=== PATIENT | male | born 1995 | race Caucasian/White ===

== ENCOUNTER 2017-03-03 21:46 | Emergency (ER) | payer SELFPAY ==
[~2017-03-03] VITALS: Ht 185.4 cm; Wt 101.2 kg
[2017-03-03 22:00] VITALS: BP 119/80
[2017-03-03] MEDS ORDERED: diphenhydrAMINE 50 MG/ML VIAL ONE (22:21)
[2017-03-03] MEDS ORDERED: KETOROLAC 30 MG/ML VIAL. ONE (22:22)
[2017-03-03] MEDS ORDERED: METOCLOPRAMIDE HCL 10 MG/2 ML VIAL. ONE (22:22)
[2017-03-03] MEDS ORDERED: diphenhydrAMINE 50 MG/ML VIAL IV ONE (22:30)
[2017-03-03] MEDS ORDERED: KETOROLAC 30 MG/ML VIAL. IV ONE (22:30)
[2017-03-03] MEDS ORDERED: METOCLOPRAMIDE HCL 10 MG/2 ML VIAL. IV ONE (22:30)
[2017-03-03] MEDS ORDERED: IV NORMAL SALINE 1,000ML 1,000 ML IV ONE (22:30)
[2017-03-03] MEDS ORDERED: ONDA4TAB10 SL (22:52)
--- NOTE | 2017-03-03 22:52 | PHYS DOC ---
Past History Past Medical History: No Pertinent History Past Surgical History: No Surgical History Alcohol Use: None Drug Use: None Adult General Chief Complaint Chief Complaint: HEADACHE HPI HPI Patient is a 21-year-old gentleman who presents here today complaining of nausea , headache, not feeling well, generalized fatigue,. Patient reports he is to call in sick. Patient reports she has 2 jobs and works about 20 hours a day and thinks that he uses to stress. Patient called in sick today from his job at [employer]. He was not feeling well and felt like he needed to be evaluated in the ER. Patient denies any fevers shakes chills cough cold runny nose. Patient reports she's been eating and drinking well. Patient has any tobacco alcohol or drugs. Patient has any other past medical history. Review of systems: Constitutional: Denies fever or chills Eyes: Denies change in visual acuity, redness, or eye pain HENT: Denies nasal congestion or sore throat All other systems were reviewed and found to be within normal limits, except as documented in this note. Physical exam Constitutional: Well developed, well nourished, no acute distress, non-toxic appearance. HENT: Normocephalic, atraumatic, bilateral external ears normal, oropharynx moist, no oral exudates, nose normal. Eyes: PERRLA, EOMI, conjunctiva normal, no discharge. Neck: Normal range of motion, no tenderness, supple, no stridor. Cardiovascular:Heart rate regular rhythm, Lungs & Thorax: Bilateral breath sounds clear to auscultation Abdomen: Nondistended. Skin: Warm, dry, no erythema, no rash. Back: No tenderness, no CVA tenderness. Extremities: No tenderness, no cyanosis, no clubbing, ROM intact, no edema. Neurologic: Alert and oriented X 3, normal motor function, normal sensory function, no focal deficits noted. Psychologic: Affect normal, judgement normal, mood normal. ER physical exam is significant for a benign abdomen. Patient's abdomen was soft nontender no rebound or guarding. Patient's pupils are equally round and reactive to light. Promotions were intact. Funduscopic exam. No nuchal rigidity. Assessment and plan: 21-year-old gentleman who presents here today with headache and nausea. Patient's physical exam today is unremarkable. Labs have been ordered for the patient as well as IV fluids Benadryl and Toradol and Reglan to assist with symptoms. Patient is declining all this workup because his ride is here and she is about to leave. Patient is requesting a note for work so that he go home and get some rest. Patient understands risks of missing a life-threatening process without further evaluation the ER. Patient reports that he needs to get his ride home. You'll need to walk home. Patient was offered a cab voucher which he declined. Current Medications Current Medications Current Medications Medications (Trade) Dose Ordered Sig/More[place] Start Time Stop Time Status Last Admin Dose Admin Diphenhydramine HCl (Benadryl) 25 mg 1X ONCE 03/03/17 22:30 03/03/17 22:32 DC 03/03/17 22:29 25 MG Ketorolac Tromethamine (Toradol) 30 mg 1X ONCE 03/03/17 22:30 03/03/17 22:32 DC 03/03/17 22:30 30 MG Metoclopramide HCl (Reglan Vial) 10 mg 1X ONCE 03/03/17 22:30 03/03/17 22:32 DC 03/03/17 22:30 10 MG Sodium Chloride 1,000 ml @ 1,000 mls/hr 1X ONCE 03/03/17 22:30 03/03/17 23:29 03/03/17 22:29 1,000 MLS/HR Allergies Allergies Allergies Coded Allergies Type Severity Reaction Last Updated Verified No Known Drug Allergies 03/03/17 No Current Patient Data Vital Signs Vital Signs Date Time Temp Pulse Resp B/P (MAP) Pulse Ox O2 Delivery O2 Flow Rate FiO2 03/03/17 22:00 98.2 72 20 99 Room Air EKG EKG [] Radiology/Procedures Radiology/Procedures [] Course & Med Decision Making Course & Med Decision Making Pertinent Labs and Imaging studies reviewed. (See chart for details) [] Dragon Disclaimer Dragon Disclaimer This electronic medical record was generated, in whole or in part, using a voice recognition dictation system. Departure Departure: Impression: Primary Impression: Headache Additional Impression: Nausea Disposition: HOME, SELF-CARE Condition: IMPROVED Referrals: PCP,NO (PCP) Patient Instructions: Fatigue, General Headache Without Cause Scripts Ondansetron (ZOFRAN ODT) 4 Mg Tab.rapdis 1 TAB SL Q8HRS for NAUSEA, #15 TAB Prov: TINA GERONIMO MD 03/03/17 Problem Qualifiers TINA GERONIMO MD Mar 03, 2017 22:52
== END 2017-03-03 23:00 | disposition home or self-care (01) ==
LOC: ER 21:46
DX: R51 Headache (principal); R11.0 Nausea; R53.83 Other fatigue
CPT/HCPCS: 96374; 96375; 99284; J1200; J1885; J2765; J7030

== ENCOUNTER 2020-04-27 22:02 | Emergency (ER) | payer SELFPAY ==
[~2020-04-27] VITALS: Ht 188 cm; Wt 108.4 kg
[~2020-04-27 22:02] MED LIST: ONDA4TAB10 SL
--- NOTE | 2020-04-27 22:09 | PHYS DOC ---
Past History Past Medical History: No Pertinent History Past Surgical History: No Surgical History Alcohol Use: None Drug Use: None General Adult EDM: Chief Complaint: HEMORRHOIDS HPI: HPI: ".. My aubrey and I were working on this car.. lifting the car body off the frame and motor.. and I was trying to push it back.. and slipped on some transmission fluid.. and too much weight.. I got severe abd. pain and rectal pain.. feels like I got a hernia and or hemorrhoid.. the area above my sack hurts.. and below my belly button.. ".. " I took some tylenol 3.. I had left over from car accide nt.. but I am still hurting..." Patient is a 25 year old male who presents with above hx and complaints of nausea, hernia and hemorrhoids. Patient symptoms started after lifting a car body. Patient denies previous abdomen or hemorrhoids. Does have a hemorrhoid which appears to be fresh approximately the size of a quarter. Does have tenderness on lower pelvis. No obvious hernia into his scrotal sac. Circumcised male. Patient did eat approximately 2 hours ago. Patient is normally healthy. No history of travel. No specific ill contacts. Review of Systems: Review of Systems: Constitutional: Denies fever or chills Eyes: Denies change in visual acuity HENT: Denies nasal congestion or sore throat Respiratory: Denies cough or shortness of breath Cardiovascular: Denies chest pain or edema GI: Complains of generalized abdominal pain, nausea and rectal pain. Denies, vomiting, bloody stools or diarrhea : Denies dysuria Musculoskeletal: Denies back pain or joint pain Integument: Denies rash Neurologic: Denies headache, focal weakness or sensory changes Endocrine: Denies polyuria or polydipsia Lymphatic: Denies swollen glands Psychiatric: Denies depression or anxiety Family History: Family History: Noncontributory to presentation Current Medications: Current Meds: See nursing for home meds Allergies: Allergies: Allergies Coded Allergies Type Severity Reaction Last Updated Verified No Known Drug Allergies 03/03/17 No Physical Exam: PE: Constitutional: Well developed, well nourished,in acute distress, non-toxic appearance. [] HENT: Normocephalic, atraumatic, bilateral external ears normal, oropharynx moist, no oral exudates, nose normal. [] Eyes: PERRLA, EOMI, conjunctiva normal, no discharge. [] Neck: Normal range of motion, no tenderness, supple, no stridor. [] Cardiovascular: Bradycardia heart rate regular rhythm, no murmur [] Lungs & Thorax: Bilateral breath sounds equal apex with few scattered wheezes on auscultation [] Abdomen: Bowel sounds decreased, distended, soft, generalized lower abdomen tenderness, tenderness to area just above his scrotal sac, no masses, no pulsatile masses. Rectal has a new hemorrhoid approximately 2 cm in diameter. Circumcised male. Testicles descended. Skin: Warm, dry, no erythema, no rash. [] Back: No tenderness, no CVA tenderness. [] Extremities: No tenderness, no cyanosis, no clubbing, ROM intact, no edema. Does have bilateral psoas tenderness Neurologic: Alert and oriented X 3, normal motor function, normal sensory function, no focal deficits noted. [] Psychologic: Affect anxious, judgement normal, mood normal. [] EKG: EKG: My interpretation EKG shows a sinus rhythm at 63 bpm. No acute morphology [] Radiology/Procedures: Radiology/Procedures: [[place] [address] IMAGING REPORT Signed PATIENT: CARITO LOO ACCOUNT: [id number] : 1995 LOCATION: ER AGE: 25 SEX: M EXAM STATUS: REG ER ORD. PHYSICIAN: ISHMAEL THORPE MD REASON: pain, injury lifting car body PROCEDURE: ACUTE ABDOMEN SERIES EXAM: Frontal view of the chest, AP views of the abdomen in upright and supine positions. CLINICAL INDICATION: Reason: pain, injury lifting car body / Spl. Instructions: / History: COMPARISON: None. FINDINGS and IMPRESSION: The heart is not enlarged. Mediastinal and hilar contours are normal. No focal parenchymal airspace opacity. No pleural effusion or pneumothorax. No abnormal small or large bowel dilatation. Moderate to large volume colonic stool content. No abnormal soft tissue mass effect. No suspicious calcifications are seen. No free intraperitoneal gas. Electronically signed by: Tal Bruce MD (04/27/2020 11:19 PM) [facility] DI[facility] AND SIGNED BY: TAL BRUCE MD DATE: 04/27/20 7039 CC: ISHMAEL THORPE MD; PCP,NO ~MTH0 0 ][address] [address] IMAGING REPORT Signed PATIENT: CARITO LOO ACCOUNT: [id number] : 1995 LOCATION: ER AGE: 25 SEX: M EXAM STATUS: REG ER ORD. PHYSICIAN: ISHMAEL THORPE MD REASON: pain, radiates lower abdomen into testicle sack PROCEDURE: CT ABD PELV W/ORAL&IV CONTRAST EXAM: CT Abdomen and Pelvis with IV contrast CLINICAL HISTORY: pain, radiates lower abdomen into testicle sack COMPARISON: none TECHNIQUE: Helical CT of the abdomen and pelvis was performed following the administration of intravenous contrast. Axial, coronal and sagittal reformatted images were generated. PQRS compliance statement - One or more of the following individualized dose reduction techniques were utilized for this study: 1. Automated exposure control 2. Adjustment of the mA and/or kV according to patient size 3. Use of iterative reconstruction technique FINDINGS: Lower Chest: Linear opacities left lower lobe likely scarring/atelectasis. Abdomen and Pelvis: Liver, spleen, adrenal glands, pancreas and gallbladder is normal in appearance. No biliary ductal dilatation. Symmetric nephrograms. No focal renal lesion. No hydronephrosis. Appendix is normal. Moderate colonic stool content is seen. No small or large bowel dilatation. No bowel obstruction. No abdominal or pelvic ascites. No abdominal or pelvic lymphadenopathy. Aorta is normal in caliber. Bones: No aggressive osseous lesion is seen. IMPRESSION: 1. Moderate colonic stool content is seen. No bowel obstruction. 2. Appendix is normal. 3. No abdominal or pelvic lymphadenopathy. Electronically signed by: Tal Bruce MD (04/28/2020 12:31 AM) [facility] AND SIGNED BY: TAL BRUCE MD DATE: 04/28/20 0024 CC: ISHMAEL THORPE MD; PCP,NO ~MTH0 0 Heart Score: HEART Score for Chest Pain: HEART Score for Chest Pain Response (Comments) Value History Slighlty/Non-Suspicious 0 ECG Normal 0 Age < 45 0 Risk Factors 1 or 2 Risk Factors 1 Total 1 Risk Factors: Risk Factors: DM, Current or recent (<one month) smoker, HTN, HLP, family history of CAD, obesity. Risk Scores: Score 0 - 3: 2.5% MACE over next 6 weeks - Discharge Home Score 4 - 6: 20.3% MACE over next 6 weeks - Admit for Clinical Observation Score 7 - 10: 72.7% MACE over next 6 weeks - Early Invasive Strategies Course & Med Decision Making: Course & Med Decision Making Pertinent Labs and Imaging studies reviewed. (See chart for details) Patient stay on a clear fluid diet the next couple days. No solids. No milk products. Push clear fluids such as fruit juices, Jell-O popsicles, sweet tea, coffee, pop, etc. Must have reexam if persistent pain. Currently no surgical pathology appreciated on CT of abdomen. Patient given a dose of milk of magnesia here. Patient take Tylenol and ibuprofen for pain. For marked pain may take Vicoprofen up to 4 times a day. Must follow-up. Follow-up primary care. Patient use sitz bath as needed for his hemorrhoid. Patient to use Anusol suppositories up to 4 times a day. Patient used dibucaine ointment to the hemorrhoid if needed for pain. If no improvement may need hemorrhoid excision or banding. Must follow-up. Impression: 1. Muscle strain sprain abdomen 2. New hemorrhoid 3. Constipation 4. Tobacco use [place] Disclaimer: [place] Disclaimer: This electronic medical record was generated, in whole or in part, using a voice recognition dictation system. Departure Departure: Referrals: PCP,NO (PCP) Scripts Hydrocodone/Ibuprofen (HYDROCODONE-IBUPROFEN 7.5-200 ) 1 Each Tablet 1 TAB PO PRN Q6HRS PRN for PAIN, #30 TAB 0 Refills Prov: ISHMAEL THORPE MD 04/28/20 Dibucaine (DIBUCAINE) 28 Gm Oint...g. 28 GM RC QIDPRN PRN for hemorrhoid pain, #30 MISC Prov: ISHMAEL THORPE MD 04/28/20 Hydrocortisone Acetate (ANUSOL-HC) 25 Mg Supp.rect 25 MG RC QIDPRN PRN for hemorrhoid pain, #30 SUPP.RECT Prov: ISHMAEL THORPE MD 04/28/20 Dragon Disclaimer This chart was dictated in whole or in part using Voice Recognition software in a busy, high-work load, and often noisy Emergency Department environment. It may contain unintended and wholly unrecognized errors or omissions. Dragon Disclaimer This chart was dictated in whole or in part using Voice Recognition software in a busy, high-work load, and often noisy Emergency Department environment. It may contain unintended and wholly unrecognized errors or omissions. ISHMAEL THORPE MD Apr 27, 2020 22:09
[2020-04-27] MEDS ORDERED: ORPHENADRINE CITRATE 60 MG/2 ML VIAL. IM ONE (22:45)
[2020-04-27] MEDS ORDERED: ONDANSETRON PF 4 MG/2 ML VIAL. IVP ONE (22:45)
[2020-04-27] MEDS ORDERED: IV RINGERS SOLUTION,LACTATED 1,000 ML IV SCH (22:45)
[2020-04-27] MEDS ORDERED: MORPHINE SULFATE 10 MG/ML SYRINGE. SQ ONE (22:45)
[2020-04-27] MEDS ORDERED: FAMOTIDINE 20 MG/2 ML VIAL IVP ONE (22:45)
[2020-04-27] MEDS ORDERED: IOHEXOL 240 MG/ML 50ML VIAL. ONE (22:51)
[2020-04-27 23:11] LABS: BASO # 0.1 x10^3/uL (0.0-0.2); BASO % 1 % (0-3); EOS # 0.1 x10^3/uL (0.0-0.7); EOS % 2 % (0-3); HEMATOCRIT 45.1 % (39.0-53.0); HEMOGLOBIN 15.2 g/dL (13.0-17.5); LYMPH # 2.9 x10^3/uL (1.0-4.8); LYMPH % 38 % (24-48); MEAN CORPUSCULAR HEMOGLOBIN 30 pg (25-35); MEAN CORPUSCULAR HGB CONC 34 g/dL (31-37); MEAN CORPUSCULAR VOLUME 89 fL (79-100); MONO # 0.6 x10^3/uL (0.0-1.1); MONO % 8 % (0-9); NEUT # 3.9 x10^3uL (1.8-7.7); NEUT % 51 % (31-73); PLATELET COUNT 212 x10^3/uL (140-400); RED BLOOD COUNT 5.05 x10^6/uL (4.30-5.70); RED CELL DISTRIBUTION WIDTH 13.3 % (11.5-14.5); WHITE BLOOD COUNT 7.7 x10^3/uL (4.0-11.0)
[2020-04-27] MEDS ORDERED: CONTRAST GIVEN. MC PRN (23:15)
--- NOTE | 2020-04-27 23:20 | EKG ---
[address] [address] Test Date: 2020-04-27 Test Time: 23:11:43 Pat Name: CARITO LOO Department: Room: Gender: M Operations Specialist: CHERYL : 1995 Requested By: ISHMAEL THORPE Order Number: [id number] Reading MD: Measurements Intervals [place] Rate: 63 P: WI: QRS: 54 QRSD: 98 T: 34 QT: 376 QTc: 388 Interpretive Statements IRREGULAR RHYTHM, NO P-WAVE FOUND OTHERWISE NORMAL ECG RI6.02 No previous ECG available for comparison
[2020-04-27 23:22] LABS: CALCIUM 8.8 mg/dL (8.5-10.1); CREATININE 0.9 mg/dL (0.7-1.3); GFR 102.8
--- NOTE | 2020-04-27 23:22 | RAD ---
EXAM: Frontal view of the chest, AP views of the abdomen in upright and supine positions. CLINICAL INDICATION: Reason: pain, injury lifting car body / Spl. Instructions: / History: COMPARISON: None. FINDINGS and IMPRESSION: The heart is not enlarged. Mediastinal and hilar contours are normal. No focal parenchymal airspace o pacity. No pleural effusion or pneumothorax. No abnormal small or large bowel dilatation. Moderate to large volume colonic stool content. No abn ormal soft tissue mass effect. No suspicious calcifications are seen. No free intraperitoneal gas. Electronically signed by: Tal Bruce MD (04/27/2020 11:19 PM) [facility]
[2020-04-27 23:29] LABS: ALBUMIN 3.9 g/dL (3.4-5.0); DIRECT BILIRUBIN 0.1 mg/dL (0.0-0.2); TOTAL BILIRUBIN 0.1 mg/dL (0.2-1.0); TOTAL PROTEIN 6.7 g/dL (6.4-8.2)
[2020-04-27] MEDS ORDERED: IOHEXOL 300 MG/ML 75 ML VIAL. IV ONE (23:30)
[2020-04-27] MEDS ORDERED: IOHEXOL 240 MG/ML 50ML VIAL. PO ONE (23:30)
--- NOTE | 2020-04-28 00:33 | RAD ---
EXAM: CT Abdomen and Pelvis with IV contrast CLINICAL HISTORY: pain, radiates lower abdomen into testicle sack COMPARISON: none TECHNIQUE: Helical CT of the abdomen and pelvis was performed following the administration of intrave nous contrast. Axial, coronal and sagittal reformatted images were generated. PQRS compliance statement - One or more of the following individualized dose reduction techniques wer e utilized for this study: 1. Automated exposure control 2. Adjustment of the mA and/or kV according to patient size 3. Use of iterative reconstruction technique FINDINGS: Lower Chest: Linear opacities left lower lobe likely scarring/atelectasis. Abdomen and Pelvis: Liver, spleen, adrenal glands, pancreas and gallbladder is normal in appearance. No biliary ductal di latation. Symmetric nephrograms. No focal renal lesion. No hydronephrosis. Appendix is normal. Moderate colonic stool content is seen. No small or large bowel dilatation. No miquel wel obstruction. No abdominal or pelvic ascites. No abdominal or pelvic lymphadenopathy. Aorta is normal in caliber. Bones: No aggressive osseous lesion is seen. IMPRESSION: 1. Moderate colonic stool content is seen. No bowel obstruction. 2. Appendix is normal. 3. No abdominal or pelvic lymphadenopathy. Electronically signed by: Tal Bruce MD (04/28/2020 12:31 AM) [facility]
[2020-04-28] MEDS ORDERED: MAGNESIUM HYDROXIDE 2,400 MG/30 ML ORAL.SUSP. PO ONE ×2 (01:00→01:30)
[2020-04-28] MEDS ORDERED: IV RINGERS SOLUTION,LACTATED 1,000 ML IV ONE (01:00)
[2020-04-28] MEDS ORDERED: HYDR25SU18 RC (01:06)
[2020-04-28] MEDS ORDERED: DIBU28OI RC (01:06)
[2020-04-28 01:21] VITALS: BP 128/78
[2020-04-28 01:38] LABS: BARBITURATES NEG (NEG); BENZODIAZEPINES NEG (NEG); CANNABINOIDS NEG (NEG); COCAINE NEG (NEG); METHADONE NEG (NEG); OPIATES POS (NEG); PHENCYCLIDINE NEG (NEG)
[2020-04-28 01:40] LABS: BACTERIA,URINE 0 /HPF (0-FEW); BILIRUBIN,URINE NEG (NEG); CLARITY,URINE CLEAR; COLOR,URINE YELLOW; GLUCOSE,URINE NEG (NEG); NITRITE,URINE NEG (NEG); RBC,URINE 0 /HPF (0-2); SQUAMOUS EPITHELIAL CELL,UR OCC /LPF; UROBILINOGEN,URINE 0.2 mg/dL (0.2 mg/dL); WBC,URINE RARE /HPF (0-4)
[2020-04-28 01:41] LABS: AMPHETAMINE/METHAMPHETAMINE NEG (NEG)
[2020-04-28] MEDS ORDERED: HYDR-1179 PO (01:52)
== END 2020-04-28 01:52 | disposition home or self-care (01) ==
LOC: ER 22:02
DX: S39.011A Strain of muscle, fascia and tendon of abdomen, initial encounter (principal); K64.9 Unspecified hemorrhoids; K59.00 Constipation, unspecified; Z72.0 Tobacco use; W18.40XA Slipping, tripping and stumbling without falling, unspecified, initial encounter; Y93.89 Activity, other specified; Y92.89 Other specified places as the place of occurrence of the external cause; Y99.8 Other external cause status
CPT/HCPCS: 36415; 74022; 74177; 80048; 80076; 80307; 81001; 82150; 82550; 83690; 84484; 85025; 85610; 85730; 93005; 96361; 96372; 96374; 96375; 99285; J2270; J2360; J2405; J3490; J7120; Q9966; Q9967

== ENCOUNTER 2020-10-03 14:41 | Emergency (ER) | payer OTHER ==
[~2020-10-03] VITALS: Ht 188 cm; Wt 111.8 kg
[~2020-10-03 14:41] MED LIST changes: +DIBU28OI RC; +HYDR-1179 PO; +HYDR25SU18 RC
[2020-10-03] MEDS ORDERED: ONDANSETRON PF 4 MG/2 ML VIAL. ONE (14:55)
--- NOTE | 2020-10-03 14:55 | PHYS DOC ---
Past History Past Medical History: No Pertinent History Past Surgical History: No Surgical History Alcohol Use: Rarely Drug Use: None General Adult EDM: Chief Complaint: HAND PROBLEM HPI: HPI: Patient is a 25 year old male who presents with laceration to L. hand after getting it caught in AC fan blade at work within 30 minutes of ER arrival. Pt reports pain to L. hand at laceration site, it is constant, and severe he reports. Patient reports that he has had a tetanus shot within the last 5 years. He denies any additional injuries. Last meal was 1 hour [employer]. Review of Systems: Review of Systems: Constitutional: Denies fever or chills Respiratory: Denies cough or shortness of breath Cardiovascular: Denies chest pain or edema GI: Denies abdominal pain, nausea, vomiting, bloody stools or diarrhea Musculoskeletal: Reports pain to L. hand Integument: Reports laceration to L. hand Neurologic: Denies headache, focal weakness or sensory changes Psychiatric: Denies depression or anxiety Allergies: Allergies: Allergies Coded Allergies Type Severity Reaction Last Updated Verified No Known Drug Allergies 03/03/17 No Physical Exam: PE: Constitutional: Well developed, well nourished, no acute distress, non-toxic appearance. [] HENT: Normocephalic, atraumatic Cardiovascular:Heart rate regular rhythm, no murmur [] Lungs & Thorax: Bilateral breath sounds clear to auscultation [] Skin: Warm, dry, 3cm x 1cm laceration to dorsal aspect of l. hand proximal to 4th digit with tendon involvement. Lacration is actively bleeding and dressing applied. Patient unable to fully extend L. 4th finger. Neuro intact. Full ROM of other digits of L. hand. 1cm x 1cm laceration to L. 2nd digit proximal to MCP joint. Extremities: No tenderness, no cyanosis, no clubbing, ROM intact, no edema. [] Neurologic: Alert and oriented X 3, normal motor function, normal sensory function, no focal deficits noted. [] Psychologic: Affect normal, judgement normal, mood normal. [] EKG: EKG: [] Radiology/Procedures: Radiology/Procedures: [] Heart Score: C/O Chest Pain: No Risk Factors: Risk Factors: DM, Current or recent (<one month) smoker, HTN, HLP, family history of CAD, obesity. Risk Scores: Score 0 - 3: 2.5% MACE over next 6 weeks - Discharge Home Score 4 - 6: 20.3% MACE over next 6 weeks - Admit for Clinical Observation Score 7 - 10: 72.7% MACE over next 6 weeks - Early Invasive Strategies Course & Med Decision Making: Course & Med Decision Making Pertinent Labs and Imaging studies reviewed. (See chart for details) I reviewed patients case with Dr. Cordero at [facility] who suggested suture placement, antibiotics, and splint and to follow up in his office. Follow up information was faxed to us and given to patient, patient is aware of follow up information. Dragon Disclaimer: Dragon Disclaimer: This electronic medical record was generated, in whole or in part, using a voice recognition dictation system. Laceration Repair Lac Repair Indication: l. hand lacerations Procedure: The patient was placed in the appropriate position and anesthesia around the L. hand, anesthesia used: 1% lidocaine. Laceration 1 which measured 2cm x 1cm was irrigated with 40cc of saline and betadine scrub. Laceration 2 which was 4.5cmx 3cm was irrigated with 80 cc of normal saline and cleansed with chlorhexadine scrub. Laceration 1 was closed with 5.0 ethilon, 5 sutures placed. Laceration 2 closed with 5.0 ethilon 11 sutures placed. The wound area was then dressed with non-adherent dressing with triple antibiotic ointment and aluminum finger splint placed on L. 4th finger due to tendon involvement per Dr. Cordero at [facility]. Total repaired wound length: 2cm and 4.5cm Other Items: The patient tolerated the procedure Complications: none Departure Departure: Impression: Primary Impression: Laceration of hand, left, complicated Qualified Codes: S61.412A - Laceration without foreign body of left hand, initial encounter Additional Impression: Laceration of finger of left hand Qualified Codes: S61.215A - Laceration without foreign body of left ring finger without damage to nail, initial encounter Disposition: HOME / SELF CARE / HOMELESS Condition: GOOD Referrals: PCP,NO (PCP) Patient Instructions: Laceration Care, Adult, [id number] Additional Instructions: You were seen today for a laceration of your hand, I believe that there was a disruption of the tendon that moves your finger that requires repair from a hand specialist, I spoke with Dr. Cordero who wants to see you next week. It is imperative that you call him so that your hand can be repaired in order for you to return to work in a timely manner. See follow up paper from [facility] for information on how to set up a follow up appointment. You have 16 stitches that require removal, make sure that you have stitches removed in 7-10 days. Make sure that you keep wound clean and dry and monitor for signs of infection like redness, warmth, drainage. Do not submerge your hand in water for 48 hours. Please return to the ER for worsening of symptoms. EMERGENCY DEPARTMENT GENERAL DISCHARGE INSTRUCTIONS Thank you for coming to [facility] (ED) today and trusting us with you care. We trust that you had a positivie experience in our Emergency Department. If you wish to speak to the department management, you may call the director at [phone]. YOUR FOLLOW UP INSTRUCTIONS ARE FOLLOWS: 1. Do you have a private Doctor? If you do not have a private doctor, please ask for a resource list of physicians or clinics that may be able to assist you with follow up care. 2. The Emergency Physician has interpreted your x-rays. The X-Ray specialist will also review them. If there is a change in the findings, you will be notified in 48 hours when at all possible. 3. A lab test or culture has been done, your results will be reviewed and you will be notified if you need a change in treatment. ADDITIONAL INSTRUCTIONS AND INFORMATION: 1. Your care today has been supervised by a physician who is specially trained in emergency care. Many problems require more than one evaluation for a complete diagnosis and treatment. We recommend that you schedule your follow up appointment as recommended to ensure complete treatment of you illness or injury. If you are unable to obtain follow up care and continue to have a problem, or if your condition worsens, we recommend that you return to the ED. 2. We are not able to safely determine your condition over the phone nor are we able to give sound medical advice over the phone. For these safety reasons, if you call for medical advice we will ask you to come to the ED for further evaluation. 3. If you have any questions regarding these discharge instructions please call the ED at [phone]. SAFETY INFORMATION: In the interest of safety, wellness, and injury prevention; we encourage you to wear your sealbelt, if you smoke; quite smoking, and we encourage family to use a protective helmet for bicycling and other sporting events that present an increased risk for head injury. IF YOUR SYMPTOMS WORSEN OR NEW SYMPTOMS DEVELOP, OR YOU HAVE CONCERNS ABOUT YOUR CONDITION; OR IF YOUR CONDITION WORSENS WHILE YOU ARE WAITING FOR YOUR FOLLOW UP APPOINTMENT; EITHER CONTACT YOUR PRIMARY CARE DOCTOR, THE PHYSICIAN WHOSE NAME AND NUMBER YOU WERE GIVEN, OR RETURN TO THE ED IMMEDIATELY. Scripts Ibuprofen (IBUPROFEN) 600 Mg Tablet 600 MG PO Q6-8HRS PRN for PAIN, #20 TAB 0 Refills Prov: LOYD CAT APRN 10/03/20 Cephalexin (CEPHALEXIN) 500 Mg Tablet 1 TAB PO BID for laceration for 7 Days, #14 TAB 0 Refills Prov: LOYD CAT APRN 10/03/20 LOYD CAT APRN Oct 03, 2020 14:55
[2020-10-03] MEDS ORDERED: ONDANSETRON PF 4 MG/2 ML VIAL. IVP ONE (15:00)
[2020-10-03] MEDS ORDERED: IV NORMAL SALINE 1,000ML 1,000 ML IV ONE (15:00)
--- NOTE | 2020-10-03 15:17 | RAD ---
XR HAND_LEFT 3 VIEWS History: Reason: LACERATION ON 3RD 4TH METACARPAL / Spl. Instructions: / History: Technique: 3 views left hand Comparison: None. Findings: Normal alignment. No fracture. No radiopaque foreign body. Dorsal hand soft tissue injury. Impression: 1. No acute osseous abnormality. No radiopaque foreign body. Electronically signed by: Regis Curry DO (10/03/2020 3:15 PM) [facility]
[2020-10-03] MEDS ORDERED: ceFAZolin SODIUM 1 GM VIAL ONE (16:12)
[2020-10-03] MEDS ORDERED: IV NORMAL SALINE 50ML 50 ML ONE (16:12)
[2020-10-03] MEDS ORDERED: LIDOCAINE 1% PF 30 ML VIAL. INJ ONE (16:15)
[2020-10-03 17:42] VITALS: BP 156/84
[2020-10-03] MEDS ORDERED: NEOMY/BACITR/POLYMYXIN OINT PACKET. TP ONE (17:45)
[2020-10-03] MEDS ORDERED: CEPH500T PO (17:46)
[2020-10-03] MEDS ORDERED: IBUP600T16 PO (18:17)
== END 2020-10-03 18:13 | disposition home or self-care (01) ==
LOC: ER 14:41
DX: S61.215A Laceration without foreign body of left ring finger without damage to nail, initial encounter (principal); S61.211A Laceration without foreign body of left index finger without damage to nail, initial encounter; W26.8XXA Contact with other sharp object(s), not elsewhere classified, initial encounter; Y93.89 Activity, other specified; Y92.89 Other specified places as the place of occurrence of the external cause
CPT/HCPCS: 12002; 73130; 96361; 96365; 96375; 99285; J0690; J2405; J3010; J7030